=== PATIENT | male | born 1955 | race Caucasian/White ===

== ENCOUNTER 2020-01-20 08:21 | Outpatient (CLI) | payer OTHER | END 2020-01-20 23:59 | disposition home or self-care (01) | LOC: ROC 08:21 | PROVIDERS: ATTEND Radiology Radiation Oncology | DX: C61 Malignant neoplasm of prostate (principal) | CPT/HCPCS: 99204; G0463 ==

== ENCOUNTER 2020-05-02 07:30 | Outpatient (CLI) | payer MEDICARE, OTHER ==
[2020-05-02] MEDS ORDERED: MIDAZOLAM 1 MG/ML, 5ML ONE (09:30)
[2020-05-02] MEDS ORDERED: FENTANYL PF 100 MCG/2ML ONE (09:30)
[2020-05-02] MEDS ORDERED: LIDOCAINE/PF 1%, 30ML ONE (09:30)
== END 2020-05-02 23:59 | disposition home or self-care (01) ==
LOC: ROC 07:30
PROVIDERS: ATTEND Radiology Radiation Oncology
DX: C61 Malignant neoplasm of prostate (principal)
CPT/HCPCS: 55876; 76942; 77332; 99156; A4648; J2250; J3010

== ENCOUNTER → 2020-08-24 | Outpatient (CLI) | payer MEDICARE, OTHER | END | disposition home or self-care (01) | LOC: ROC 09:04 | PROVIDERS: ATTEND Radiology Radiation Oncology | DX: Z08 Encounter for follow-up examination after completed treatment for malignant neoplasm (principal); Z85.46 Personal history of malignant neoplasm of prostate | CPT/HCPCS: G0463 ==

== ENCOUNTER 2021-04-27 13:57 | Outpatient (CLI) | payer MEDICARE, BC | END 2021-04-27 23:59 | disposition home or self-care (01) | LOC: ROC 13:57 | PROVIDERS: ATTEND Radiology Radiation Oncology | DX: Z08 Encounter for follow-up examination after completed treatment for malignant neoplasm (principal); Z85.46 Personal history of malignant neoplasm of prostate | CPT/HCPCS: G0463 ==